=== PATIENT | female | born 1950 | race African-American/Black ===

== ENCOUNTER 2020-03-26 19:16 | Inpatient (IN) | payer OTHER ==
[~2020-03-26] VITALS: Ht 167.6 cm; Wt 77.1 kg
[~2020-03-26 19:16] MED LIST: AMLODIPINE-BEN1 EACH PO; CALCIUM 500 WI1 EAC3 PO; HYDROCHLOROTHIA25 M1 PO; HYDROCODON-ACE1 EAC5; MECLIZINE HCL12.5 MG PO; MOBIC15 MG PO; NORVASC 5 MG TAB5 MG PO; OXYCODONE HCL 55 MG PO; PERCOCET PO; PREMARIN0.3 MG PO; TUMS PO; VOLTAREN GEL 1100 G1 TOP; XARELTO10 M1; XARELTO10 MG PO; ZOFRAN ODT4 MG PO
[2020-03-26 19:24] VITALS: BP 105/70
[2020-03-26 20:21] LABS: ABSOLUTE NEUTROPHILS 12.6 thou/uL (1.4-8.2); EOSINOPHILS 1.9 % (0.0-3.0); HEMATOCRIT 44.6 % (37.0-47.0); HEMOGLOBIN 14.7 gm/dL (12.0-15.0); LYMPHOCYTES 9.4 % (24.0-44.0); MCH 32.6 pg (26.0-34.0); MCV 98.9 fL (80.0-100.0); MONOCYTES 4.6 % (1.0-8.0); PLATELET COUNT 359 thou/uL (150-400); POLYS 83.1 % (36.0-66.0); RBC 4.51 mil/uL (4.20-5.00); RDW 13.6 % (10.5-14.5); WBC 15.1 thou/uL (4.0-11.0)
[2020-03-26 20:27] LABS: ANION GAP 14 mmol/L (7-16); BUN 17 mg/dL (7-18); CALCIUM 9.8 mg/dL (8.5-10.1); CHLORIDE 102 mmol/L (98-107); CO2 25 mmol/L (21-32); CREATININE 1.3 mg/dL (0.6-1.0); GLUCOSE 127 mg/dL (74-106); POTASSIUM 4.1 mmol/L (3.5-5.1); SODIUM 141 mmol/L (136-145)
[2020-03-26 20:34] LABS: PROTIME 10.4 Seconds (9.3-11.4)
[2020-03-26] MEDS ORDERED: PRAVASTATIN SOD20 MG PO (20:35)
[2020-03-26] MEDS ORDERED: VITAMIN C500 M2 PO (20:36)
[2020-03-26 20:37] LABS: ALBUMIN 3.6 g/dL (3.4-5.0); SGOT 23 U/L (15-37); SGPT 25 U/L (30-65); TOTAL BILIRUBIN 0.7 mg/dL (0.2-1.0); TOTAL PROTEIN 7.7 g/dL (6.4-8.2); TROPONIN-I <0.06 ng/mL (<0.06)
[2020-03-26 22:24] VITALS: BP 104/68
[2020-03-26 22:30] VITALS: BP 104/68
[2020-03-26 23:00] VITALS: BP 127/69
[2020-03-27 00:13] VITALS: BP 103/60
--- NOTE | 2020-03-27 05:14 | NUR ---
pt new admit. alert and oriented. vitals stable. Report mild abdominal pain and headache. denies sob, nausea or vomiting. admission complete, Monitor applied, SR. Consent forms signed and family updated. No other concerns overnight. will continue to monitor
[2020-03-27 05:47] LABS: HEMATOCRIT 36.4 % (37.0-47.0); MCH 32.6 pg (26.0-34.0); MCHC 32.7 g/dL (28.0-37.0); MCV 99.7 fL (80.0-100.0); RBC 3.65 mil/uL (4.20-5.00); RDW 13.5 % (10.5-14.5); WBC 11.6 thou/uL (4.0-11.0)
[2020-03-27 05:59] LABS: CALCIUM 8.6 mg/dL (8.5-10.1); CREATININE 1.1 mg/dL (0.6-1.0); POTASSIUM 4.1 mmol/L (3.5-5.1)
[2020-03-27 06:04] LABS: HEMOGLOBIN 11.9 gm/dL (12.0-15.0)
--- NOTE | 2020-03-27 07:18 | EKG ---
[address] [address] ELECTROCARDIOGRAM REPORT Name: SHRUTHI LEONE Room #: 200-I ADM IN .R.#: [id number] Admission: 03/26/20 Attend Phys: Tyrell Horn MD Discharge: Date of : 48 Report #: [id number] [facility] ED Test Date: 2020-03-26 Test Time: 19:37:36 Pat Name: SHRUTHI LEONE Department: Room: [facility] Gender: F Fiscal Clerk: GIO : 1950 Requested By: Rosie Finch Order Number: [id number] : Vicente Hernandez Measurements Intervals [place] Rate: 88 P: 55 LA: 140 QRS: -33 QRSD: 114 T: 16 QT: 368 QTc: 446 Interpretive Statements Sinus rhythm Left ventricular hypertrophy Compared to ECG 09/03/2014 13:50:18 Sinus bradycardia no longer present Electronically Signed On 03-27-2020 7:18:40 [employer] by Vicente Hernandez [email or web address] <ELECTRONICALLY SIGNED> By: Vicente Hernandez MD, [facility] 03/27/20 0718 36 36 Vicente Hernandez MD, FACC /EPI
[2020-03-27 07:25] VITALS: BP 108/60
[2020-03-27 07:36] VITALS: BP 121/69
[2020-03-27 07:37] VITALS: BP 114/67
--- NOTE | 2020-03-27 11:02 | NUR ---
met with patient who admits from home with abd pain. Patient lives with spouse in independent home. Steps to enter home. All needs on one level. No hx of dme. Independent with adls and self care. She cont to drive. Spouse at bedside. PCP Dr Donnell Raymond. Anticipate no dc needs. casemgt following.
--- NOTE | 2020-03-27 11:47 | 2DMMODE ---
[facility] [place] [address] 2 D/M-MODE ECHOCARDIOGRAM Name: SHRUTHI LEONE Room #: 200-I ADM IN ..#: [id number] Admission: 03/26/20 Attend Phys: Tyrell Horn MD Discharge: Date of : 48 Report #: [id number] THIS REPORT FOR: cc: FAM - Family physician unknown FAM - Family physician unknown Vicente Hernandez MD [facility] ~ APPROVED REPORT Study performed: 03/27/2020 09:28:03 EXAM: Comprehensive 2D, Doppler, and color-flow Echocardiogram Patient Location: Bedside Room #: 200 Status: routine BSA: 1.87 HR: 60 bpm BP: 108/60 mmHg Rhythm: NSR Other Information Study Quality: Good Indications Syncope Hypertension/HDD 2D Dimensions RVDd: 39.43 mm IVSd: 12.26 (7-11mm) LVOT Diam: 19.12 (18-24mm) LVDd: 38.00 mm PWd: 11.29 (7-11mm) Ascending Ao: 22.68 (22-36mm) LVDs: 22.34 (25-40mm) Aortic Root: 31.76 mm Volumes Left Atrial Volume (Systole) Single Plane 4CH: 75.21 mL Single Plane 2CH: 46.87 mL LA ESV Index: 35.00 mL/m2 Aortic Valve AoV Peak Juan Jose.: 1.06 m/s AO Peak Gr.: 4.47 mmHg LVOT Max P.05 mmHg LVOT Max V: 0.87 m/s AMALIA Vmax: 2.37 cm2 [facility] [address] [address] 2 D/M-MODE ECHOCARDIOGRAM Name: SHRUTHI LEONE Room #: 200-I [facility] IN [facility]#: [id number] Admission: 03/26/20 Attend Phys: Tyrell Horn MD Discharge: Date of : 48 Report #: [id number] Mitral Valve E/A Ratio: 1.0 MV Decel. Time: 202.62 ms MV E Max Juan Jose.: 1.05 m/s MV A Juan Jose.: 1.01 m/s MV PHT: 58.76 ms IVRT: 87.66 ms Pulmonary Valve PV Peak Juan Jose.: 0.94 m/s PV Peak Gr.: 3.53 mmHg Pulmonary Vein P Vein S: 0.49 m/s P Vein A: 0.38 m/s P Vein D: 0.29 m/s P Vein A Dur.: 170.7 msec P Vein S/D Ratio: 1.69 Tricuspid Valve TR Peak Juan Jose.: 2.42 m/s TR Peak Gr.: 23.47 mmHg PA Pressure: 28.00 mmHg Left Ventricle The left ventricle is normal size. There is normal LV segmental wall motion. There is normal left ventricular wall thickness. The left ventricular systolic function is normal. The left ventricular ejection fraction is within the normal range. LVEF is 55-60%. The left ventricular diastolic function is normal. Right Ventricle The right ventricle is normal size. The right ventricular systolic function is normal. Atria Left atrium is dilated. Right atrium is at the upper limits of normal. Aortic Valve The aortic valve is normal in structure. No aortic regurgitation is present. There is no aortic valvular stenosis. Mitral Valve The mitral valve is normal in structure. Mild mitral regurgitation. No evidence of mitral valve stenosis. Tricuspid Valve [facility] [address] [address] 2 D/M-MODE ECHOCARDIOGRAM Name: SHRUTHI LEONE Room #: 200-I [facility] IN ..#: [id number] Admission: 03/26/20 Attend Phys: Tyrell Horn MD Discharge: Date of : 48 Report #: [id number] The tricuspid valve is normal in structure. There is mild tricuspid regurgitation. Estimated PAP 28 mmHg. There is no pulmonary hypertension. Pulmonic Valve The pulmonary valve is normal in structure. Trace pulmonic regurgitation. Great Vessels The aortic root is normal in size. IVC is normal in size and collapses >50% with inspiration. Pericardium There is no pericardial effusion. <Conclusion> Normal left ventricular size/wall thickness Ejection fraction 60% Normal right ventricular size/function Mild left atrial enlargement Color-flow Doppler study was performed of the aortic/mitral/tricuspid/pulmonary valve Normal aortic valve structure and function Mild mitral valve insufficiency Mild tricuspid valve insufficiency Pulmonary systolic pressure estimated 20 mmHg No pericardial effusion <ELECTRONICALLY SIGNED> By: Vicente Hernandez MD, FACC 03/27/20 1147 46 114 Vicente Hernandez MD, FACC /INF
[2020-03-27 16:24] VITALS: BP 119/71
--- NOTE | 2020-03-27 16:32 | NUR ---
ASSESSMENT CHARTED. MEDS PER TY - LUCY CLR LIQUID DIET. NO CO'S OF PAIN OR NAUSEA. UP WITH STBY ASSIST IN ROOM TO THE BATHROOM. IV FLUIDS D/C'S ORDERED. PT TRANSFERED TO [address] [place] [address] THIS AFTERNOON. REPORT CALLED TO RECEIVING NURSE. PT TRANSFERED WITH [facility] VIA WHEELCHAIR. NO CO'S AT TIME OF TRANSFER.
[2020-03-27 19:28] VITALS: BP 125/61
--- NOTE | 2020-03-28 02:35 | NUR ---
PT DENIED PAIN SO FAR.UP WITH SBA TO THE BR.PT CONT ON IV ABX ORDERED.NO CONCERNS NOTED SO FAR.PT LOOKING FORWARD TO BE DC'D LATER IN THE DAY TODAY.CALL LIGHT WITHIN REACH.
[2020-03-28 04:28] VITALS: BP 128/62
[2020-03-28 08:35] VITALS: BP 130/76
--- NOTE | 2020-03-28 09:03 | NUR ---
Assumed care of pt at 0700. Pt a&ox4. Denies pain. Pt ambulates with steady gait. IV antibiotics infusing. Pt states she hopes to go home today. Call light within reach. Will continue to monitor.
[2020-03-28] MEDS ORDERED: CEFUROXIME500 MG PO (10:29)
[2020-03-28] MEDS ORDERED: FLAGYL500 M1 PO (10:29)
[2020-03-28 12:33] VITALS: BP 130/76
== END 2020-03-28 15:22 | disposition home or self-care (01) | DRG 391 ==
LOC: ER 19:16 → EROBS 22:19 → 4S 22:19 → 2N 22:19 → 4S 03-27 16:15
PROVIDERS: Emergency Medicine; Nurse Practitioner Family; ADMIT Hospitalist; ATTEND Hospitalist
DX: K57.32 Diverticulitis of large intestine without perforation or abscess without bleeding (principal); R65.11 Systemic inflammatory response syndrome (SIRS) of non-infectious origin with acute organ dysfunction; N17.9 Acute kidney failure, unspecified; K52.9 Noninfective gastroenteritis and colitis, unspecified; I10 Essential (primary) hypertension; K21.9 Gastro-esophageal reflux disease without esophagitis; Z96.651 Presence of right artificial knee joint; I95.9 Hypotension, unspecified; D64.9 Anemia, unspecified; E78.5 Hyperlipidemia, unspecified; M81.0 Age-related osteoporosis without current pathological fracture; G47.00 Insomnia, unspecified; Z90.710 Acquired absence of both cervix and uterus; Z88.8 Allergy status to other drugs, medicaments and biological substances; Z86.010 Personal history of colon polyps
CPT/HCPCS: 10081; 10102

== ENCOUNTER 2020-10-03 12:37 | Emergency (ER) | payer OTHER ==
[~2020-10-03] VITALS: Ht 165.1 cm; Wt 60.8 kg
[~2020-10-03 12:37] MED LIST changes: +CEFUROXIME500 MG PO; +FLAGYL500 M1 PO; +PRAVASTATIN SOD20 MG PO; +VITAMIN C500 M2 PO
[2020-10-03 14:27] VITALS: BP 149/82
[2020-10-04] MEDS ORDERED: NORCO5 PO (15:13)
== END 2020-10-03 14:25 | disposition home or self-care (01) ==
LOC: ER 12:37
DX: S16.1XXA Strain of muscle, fascia and tendon at neck level, initial encounter (principal); I10 Essential (primary) hypertension; K21.9 Gastro-esophageal reflux disease without esophagitis; Z90.710 Acquired absence of both cervix and uterus; Z88.8 Allergy status to other drugs, medicaments and biological substances; V49.49XA Driver injured in collision with other motor vehicles in traffic accident, initial encounter; Y93.I9 Activity, other involving external motion; Y92.488 Other paved roadways as the place of occurrence of the external cause; Y99.8 Other external cause status